=== PATIENT | female | born 1935 | race Caucasian/White ===

== ENCOUNTER → 2016-07-12 | Outpatient (CLI) | payer MEDICARE ==
[~2016-07-12] MED LIST: REGADENOSON 0.4 MG/5 ML DISP.SYRIN. IV ONE
== END ==
LOC: PCVCIMAG 12:13
PROVIDERS: ATTEND Internal Medicine Cardiovascular Disease
DX: I48.91 Unspecified atrial fibrillation (principal); R07.9 Chest pain, unspecified
CPT/HCPCS: 78452; 93017; A9500; J2785

== ENCOUNTER → 2016-11-22 | Outpatient (CLI) | payer MEDICARE | END | disposition home or self-care (01) | LOC: PCVCCLINIC 12:18 | PROVIDERS: ATTEND Internal Medicine Cardiovascular Disease | DX: I10 Essential (primary) hypertension (principal); I48.0 Paroxysmal atrial fibrillation; R00.2 Palpitations; R53.83 Other fatigue; E78.00 Pure hypercholesterolemia, unspecified; Z79.899 Other long term (current) drug therapy | CPT/HCPCS: 80061; 93005; G0463 ==

== ENCOUNTER → 2017-05-29 | Outpatient (CLI) | payer MEDICARE ==
--- NOTE | 2017-05-29 09:52 | PCVCIMAG ---
APPROVED REPORT Study performed: 05/29/2017 08:34:21 EXAM: Comprehensive 2D, Doppler, and color-flow Echocardiogram Patient Location: Echo lab Status: routine BSA: 1.55 HR: 63 bpmBP: 114/64 mmHg Rhythm: NSR Other Information Study Quality: Good Risk Factors: Cardiac Risk Factors: HTN, Hyperlipidemia Indications Atrial Fibrillation Palpitations 2D Dimensions LVEF(%): 65.00 (>50%) IVSd: 7.71 (7-11mm)LVOT Diam: 18.11 (18-24mm) LVDd: 35.89 mm PWd: 7.93 (7-11mm)Ascending Ao: 36.87 (22-36mm) LVDs: 24.68 (25-40mm) Left Atrium: 31.67 (27-40mm) Aortic Root: 30.94 mm LV Single Plane 4CH: 69.79 % LV Single Plane 2CH: 71.35 %Underwood's LVEF: 70.57 % Biplane EF: 70.7 % Volumes Left Atrial Volume (Systole) Single Plane 4CH: 21.74 mLSingle Plane 2CH: 44.65 mL LA ESV Index: 24.00 mL/m2 Aortic Valve AoV Peak Edwin.: 1.22 m/s AO Peak Gr.: 6.04 mmHgLVOT Max P.14 mmHg LVOT Max V: 0.89 m/s PAUL Vmax: 1.86 cm2 Mitral Valve E/A Ratio: 1.5 MV Decel. Time: 187.00 ms MV E Max Edwin.: 0.91 m/s MV A Edwin.: 0.59 m/s IVRT: 55.36 ms TDI E/Lateral E': 11.38E/Medial E': 15.17 Medial E' Edwin.: 0.06 m/s Lateral E' Edwin.: 0.08 m/s Pulmonary Valve PV Peak Edwin.: 0.91 m/sPV Peak Gr.: 3.34 mmHg Pulmonary Vein P Vein S: 0.46 m/sP Vein A: 0.24 m/s P Vein D: 0.49 m/sP Vein A Dur.: 107.3 msec P Vein S/D Ratio: 0.94 Tricuspid Valve TR Peak Edwin.: 2.33 m/sRAP Estimate: 7.00 mmHg TR Peak Gr.: 21.80 mmHg PA Pressure: 29.00 mmHg Left Ventricle The left ventricle is normal size. There is normal LV segmental wall motion. There is normal left ventricular wall thickness. Left ventricular systolic function is normal. The left ventricular ejection fraction is within the normal range. LVEF is 65-70%. The left ventricular diastolic function is normal. Right Ventricle The right ventricle is normal size. The right ventricular systolic function is normal. Atria The left atrium size is normal. The right atrium size is normal. Aortic Valve The aortic valve is normal in structure. No aortic regurgitation is present. There is no aortic valvular stenosis. Mitral Valve There is mitral annular calcification. Mild mitral regurgitation. No evidence of mitral valve stenosis. Tricuspid Valve The tricuspid valve is normal in structure. Mild tricuspid regurgitation. Pulmonary artert pressure is 29 mmHg. Pulmonic Valve The pulmonary valve is normal in structure. Trace pulmonic regurgitation. Great Vessels The aortic root is normal in size. IVC is normal in size and collapses with >50% inspiration Pericardium There is no pericardial effusion. <Conclusion> The left ventricle is normal size. LVEF is 65-70%. The left ventricular diastolic function is normal. The right ventricle is normal size. The left atrium size is normal. The aortic valve is normal in structure. Mild mitral regurgitation. Mild tricuspid regurgitation. Pulmonary artert pressure is 29 mmHg. There is no pericardial effusion.
== END | disposition home or self-care (01) ==
LOC: PCVCIMAG 08:41
PROVIDERS: ATTEND Internal Medicine Cardiovascular Disease
DX: I08.1 Rheumatic disorders of both mitral and tricuspid valves (principal); I48.0 Paroxysmal atrial fibrillation; R00.2 Palpitations; I10 Essential (primary) hypertension; E03.9 Hypothyroidism, unspecified; R53.82 Chronic fatigue, unspecified; E78.00 Pure hypercholesterolemia, unspecified; K21.9 Gastro-esophageal reflux disease without esophagitis; R94.31 Abnormal electrocardiogram [ECG] [EKG]; Z79.899 Other long term (current) drug therapy
CPT/HCPCS: 80061; 93005; 93306; G0463

== ENCOUNTER → 2018-03-01 | Outpatient (CLI) | payer MEDICARE | END | disposition home or self-care (01) | LOC: PCVCCLINIC 14:32 | PROVIDERS: ATTEND Internal Medicine Cardiovascular Disease | DX: I48.0 Paroxysmal atrial fibrillation (principal); I10 Essential (primary) hypertension; E78.00 Pure hypercholesterolemia, unspecified; K21.9 Gastro-esophageal reflux disease without esophagitis | CPT/HCPCS: 80061; 93005; G0463 ==

== ENCOUNTER → 2018-04-18 | Outpatient (CLI) | payer MEDICARE ==
--- NOTE | 2018-04-18 15:59 | PCVCIMAG ---
APPROVED REPORT Imaging Protocol: Rest Tc-99m/Stress Tc-99m 1 day Study performed: 04/18/2018 08:59:14 Indication: P-Atrial Fibrillation, On Flecainide Patient Location: Out-Patient Stress Nurse: Marilee Bernal RN [place] Tech:Maria Del Rosario Pichardo [facility] Ht: 5 ft 5 in Wt: 115 lbs BSA: 1.56 m2 HR: 57 bpm BP: 139/64 mmHg BMI: 19.1 Rhythm: SB, First degree AV Block, Incomplete RBBB Medical History Medical History: HTN, Hyperlipidemia, Age Medications: Diltiazem, Flecainide, Eliquis, Synthroid, Lorazepam, Prilosec Allergies: Codeine, Epinephrine Pretest Chest Pain Characteristics: No chest pain Physical Disabilities: Legs Resting Data Rest SPECT myocardial perfusion imaging was performed in supine position 45 minutes following the intravenous injection of 11.2 mCi of Tc-99m Sestamibi. Time of rest injection: 814 Date: 04/18/2018 Administration Route: IV Administration Site: Left AC Pharmacologic Stress Pharmacologic stress test was performed by injecting Regadenoson 0.4 mg IV push over 10-15 seconds immediately followed by the intravenous injection of 33.6 mCi of Tc-99m Sestamibi. Time of stress injection: 944 Date: 04/18/2018 Administration Route: IV Administration Site: Left AC Gated Stress SPECT was performed 45 minutes after stress injection. The images were gated to evaluate regional wall motion and calculate left ventricular ejection fraction. Stress Test Details Stress Test: Pharmacologic stress testing performed using 0.4 mg of regadenoson per 5 mL given IV over 10 seconds. Reason for pharmacologic stress test: physical limitation, rate controlling meds. HRMax Heart Rate (APMHR): 138 bpm Resting HR: 57 bpmTarget HR (85% APMHR): 117 bpm Max HR Achieved: 67 bpm % of APMHR: 48 Recovery HR: 64 bpm BP Resting BP: 139/64 mmHg Recovery BP: 113/56 mmHg ECG Resting ECG: SB, First degree AV Block, Incomplete RBBB Stress ECG: SR, First degree AV Block, Incomplete RBBB ST Change: None Maximum ST Deviation: 0 mm Arrhythmia: APC's Recovery ECG: SR, First degree AV Block, Incomplete RBBB Recovery ST Change: None Recovery ST Deviation: 0 mm Clinical Reason for Termination: Completed protocol Stress Symptoms: Nausea, Headache Exercise duration: 0 min 55 sec Symptoms resolved with caffeine. Nurse Comments Immediately post exercise imaging, while still on camera, patient complained of SOA, heart pounding and fleeting chest pain. Patient was hyperventillating and shaking, 02 Sat 99%. Moved to treadmill room. EKG obtained. Unchanged from baseline. BP 142/64, HR 68. Rested in recliner for approx 15 min, then departed to home in care of . Stated was feeling better. Stress ECG Conclusion Clinical: Non-ischemic ECG: Non-ischemic Study Quality Study: Good Study Data Post stress, the left ventricular ejection was 75%.. SSS: 1 SRS: 4 SDS: 0 TID = 0.98. Perfusion No evidence of stress induced ischemia or prior myocardial infarction. Wall Motion Normal left ventricular size and function with no regional wall motion abnormalities. Nuclear Conclusion No evidence of stress induced ischemia or prior myocardial infarction. Normal left ventricular size and function with no regional wall motion abnormalities. Post stress, the left ventricular ejection was 75%. No change since prior study dated July 2016. Interpreted by: David Fuller MD Electronically Approved: 04/18/2018 13:34:36 <Conclusion> Clinical: Non-ischemic ECG: Non-ischemic
== END | disposition home or self-care (01) ==
LOC: PCVCIMAG 11:03
PROVIDERS: ATTEND Internal Medicine Cardiovascular Disease
DX: I10 Essential (primary) hypertension (principal); I48.0 Paroxysmal atrial fibrillation
CPT/HCPCS: 78452; 93017; A9500; J2785

== ENCOUNTER → 2018-09-13 | Outpatient (CLI) | payer MEDICARE ==
--- NOTE | 2018-09-13 15:45 | PCVCIMAG ---
APPROVED REPORT Study performed: 09/13/2018 13:35:00 EXAM: Comprehensive 2D, Doppler, and color-flow Echocardiogram Patient Location: Echo lab Status: routine BSA: 1.55 HR: 65 bpmBP: 124/70 mmHg Rhythm: NSR Other Information Study Quality: Good Risk Factors: Cardiac Risk Factors: HTN, Hyperlipidemia Indications Atrial Fibrillation 2D Dimensions IVSd: 6.68 (7-11mm)LVOT Diam: 18.27 (18-24mm) LVDd: 44.20 mm PWd: 6.52 (7-11mm)Ascending Ao: 38.64 (22-36mm) LVDs: 27.71 (25-40mm) Left Atrium: 30.40 (27-40mm) Aortic Root: 33.87 mm LV Single Plane 4CH: 64.03 % Volumes Left Atrial Volume (Systole) Single Plane 4CH: 30.15 mLSingle Plane 2CH: 56.48 mL LA ESV Index: 31.00 mL/m2 Aortic Valve AoV Peak Edwin.: 1.38 m/s AO Peak Gr.: 7.60 mmHgLVOT Max P.14 mmHg LVOT Max V: 0.85 m/s PAUL Vmax: 1.62 cm2 Mitral Valve E/A Ratio: 1.2 MV Decel. Time: 164.14 ms MV E Max Edwin.: 0.90 m/s MV A Edwin.: 0.74 m/s IVRT: 86.51 ms TDI E/Lateral E': 1.13E/Medial E': 9.00 Medial E' Edwin.: 0.10 m/s Lateral E' Edwin.: 0.80 m/s Pulmonary Valve PV Peak Gr.: 3.64 mmHg Pulmonary Vein P Vein S: 0.57 m/sP Vein A: 0.27 m/s P Vein D: 0.47 m/sP Vein A Dur.: 76.1 msec P Vein S/D Ratio: 1.21 Tricuspid Valve TR Peak Edwin.: 2.67 m/s TR Peak Gr.: 28.58 mmHg Left Ventricle The left ventricle is normal size. There is normal LV segmental wall motion. There is normal left ventricular wall thickness. Left ventricular systolic function is normal. The left ventricular ejection fraction is within the normal range. LVEF is 55-60%. The left ventricular diastolic function is normal. Right Ventricle The right ventricle is normal size. The right ventricular systolic function is normal. Atria The left atrium size is normal. The right atrium size is normal. Aortic Valve The aortic valve is normal in structure. Trace aortic regurgitation. There is no aortic valvular stenosis. Mitral Valve The mitral valve is normal in structure. Mild mitral regurgitation. No evidence of mitral valve stenosis. Tricuspid Valve The tricuspid valve is normal in structure. Trace tricuspid regurgitation. Pulmonary artery pressure is 36mmHg. Pulmonic Valve The pulmonary valve is normal in structure. There is no pulmonic valvular regurgitation. Great Vessels The aortic root is normal in size. IVC is normal in size and collapses >50% with inspiration. Pericardium There is no pericardial effusion. <Conclusion> The left ventricle is normal size. LVEF is 55-60%. The left ventricular diastolic function is normal. The right ventricle is normal size. The left atrium size is normal. The aortic valve is normal in structure. Mild mitral regurgitation. Trace tricuspid regurgitation. Pulmonary artery pressure is 36mmHg. The aortic root is normal in size. There is no pericardial effusion.
== END | disposition home or self-care (01) ==
LOC: PCVCIMAG 13:29
PROVIDERS: ATTEND Internal Medicine Cardiovascular Disease
DX: I34.0 Nonrheumatic mitral (valve) insufficiency (principal); I48.0 Paroxysmal atrial fibrillation; E78.00 Pure hypercholesterolemia, unspecified; D68.59 Other primary thrombophilia; E03.9 Hypothyroidism, unspecified; Z79.899 Other long term (current) drug therapy
CPT/HCPCS: 36415; 80061; 93005; 93306; G0463